=== PATIENT | male | born 1945 | race Caucasian/White ===

== ENCOUNTER → 2019-03-12 | Outpatient (CLI) | payer MEDICARE ==
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
== END ==
LOC: RAD FS 14:45
PROVIDERS: ATTEND Nurse Practitioner Family
DX: S29.9XXA Unspecified injury of thorax, initial encounter (principal); Z98.890 Other specified postprocedural states
CPT/HCPCS: 71100

== ENCOUNTER → 2019-09-18 | Outpatient (CLI) | payer MEDICARE ==
--- NOTE | 2019-09-18 14:45 | Diagnostic Imaging Report ---
INDICATION: Fall five days ago with persistent right chest wall pain. COMPARISON: Exam compared with a previous right rib series from 03/12/2019. FINDINGS: No lung contusion, pneumothorax, or hemothorax. Midline sternal wires are intact. No identifiable rib fracture deformity or abnormal periosteal reaction. No free air beneath the right diaphragm. There has been no appreciable change from the comparison study. IMPRESSION: Stable unremarkable right rib series. Dictated by: Dictated on workstation # [id number]
== END ==
LOC: RAD FS 13:52
PROVIDERS: ATTEND Nurse Practitioner
DX: S20.211A Contusion of right front wall of thorax, initial encounter (principal); W19.XXXA Unspecified fall, initial encounter
CPT/HCPCS: 71100

== ENCOUNTER 2020-01-07 16:29 | Emergency (ER) | payer OTHER, MEDICARE ==
[~2020-01-07] VITALS: Ht 170 cm; Wt 93.0 kg
[2020-01-07 16:41] LABS: BASOPHILS % (AUTO) 1 % (0-10); EOSINOPHILS # (AUTO) 0.2 10^3/uL (0.0-0.3); EOSINOPHILS % (AUTO) 4 % (0-10); HEMATOCRIT 36 % (40-54); HEMOGLOBIN 11.7 G/DL (13.3-17.7); LYMPHOCYTES # (AUTO) 1.9 X 10^3 (1.0-4.0); LYMPHOCYTES % (AUTO) 35 % (12-44); MEAN CORPUSCULAR HEMOGLOBIN 26 PG (25-34); MEAN CORPUSCULAR HGB CONC 33 G/DL (32-36); MEAN CORPUSCULAR VOLUME 80 FL (80-99); MEAN PLATELET VOLUME 10.3 FL (7.4-10.4); MONOCYTES # (AUTO) 0.6 X 10^3 (0.0-1.0); MONOCYTES % (AUTO) 12 % (0-12); NEUTROPHILS # (AUTO) 2.7 X 10^3 (1.8-7.8); NEUTROPHILS % (AUTO) 50 % (42-75); PLATELET COUNT 155 10^3/uL (130-400); RED CELL DISTRIBUTION WIDTH 16.8 % (10.0-14.5); WHITE BLOOD COUNT 5.5 10^3/uL (4.3-11.0)
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
[2020-01-07 16:55] LABS: INR 2.7 (0.8-1.4)
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
[2020-01-07 17:01] LABS: ALANINE AMINOTRANSFERASE 22 U/L (0-55); ALBUMIN 4.1 GM/DL (3.2-4.5); ALKALINE PHOSPHATASE 55 U/L (40-136); BILIRUBIN,TOTAL 0.7 MG/DL (0.1-1.0); BUN/CREATININE RATIO 12; CALCIUM 9.1 MG/DL (8.5-10.1); CARBON DIOXIDE 27 MMOL/L (21-32); CHLORIDE 103 MMOL/L (98-107); CREATININE SERUM 1.38 MG/DL (0.60-1.30); GFR ESTIMATED 51; GLUCOSE 156 MG/DL (70-105); POTASSIUM 4.3 MMOL/L (3.6-5.0); SODIUM 137 MMOL/L (135-145); TOTAL PROTEIN 6.7 GM/DL (6.4-8.2)
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
[2020-01-07 18:25] LABS: BILIRUBIN,URINE NEGATIVE (NEGATIVE); CLARITY,URINE CLEAR; COLOR,URINE YELLOW; GLUCOSE, URINE (UA) NEGATIVE (NEGATIVE); KETONES,URINE NEGATIVE (NEGATIVE); LEUKOCYTE ESTERASE ,URINE NEGATIVE (NEGATIVE); NITRITE,URINE NEGATIVE (NEGATIVE); PH,URINE 6.5 (5-9); PROTEIN,URINE NEGATIVE (NEGATIVE)
[2020-01-07 18:34] LABS: AMORPHOUS SEDIMENT,UR FEW AMOR URATES /LPF; BACTERIA,URINE NEGATIVE /HPF; WBC,URINE 0-2 /HPF
[2020-01-07] MEDS ORDERED: CYCL10TA9 PO (18:51)
[2020-01-07 19:15] VITALS: BP 120/69
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
== END 2020-01-07 19:17 | disposition home or self-care (01) ==
LOC: EDUNIT# 16:29 → ER 16:30
DX: R07.89 Other chest pain (principal); R40.2142 Coma scale, eyes open, spontaneous, at arrival to emergency department; R40.2252 Coma scale, best verbal response, oriented, at arrival to emergency department; R40.2362 Coma scale, best motor response, obeys commands, at arrival to emergency department; Z95.1 Presence of aortocoronary bypass graft; V49.59XA Passenger injured in collision with other motor vehicles in traffic accident, initial encounter
CPT/HCPCS: 36415; 70450; 71046; 72125; 80053; 80320; 81000; 84484; 85025; 85610; 93005

== ENCOUNTER 2020-05-10 18:48 | Emergency (ER) | payer MEDICARE, OTHER ==
[~2020-05-10] VITALS: Ht 162.5 cm; Wt 91.9 kg
[~2020-05-10 18:48] MED LIST: CYCL10TA9 PO
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
--- NOTE | 2020-05-10 19:35 | NUR ---
ATTEMPTED AGAIN TO PALPATE PULSES ON BOTH FEET TO COMPARE AND WAS UNABLE TO PALPATE AT THIS TIME EITHER FEET. EARLIER THIS RN THOUGHT A PULSE WAS FOUND IN THE RIGHT FOOT BUT UNABLE TO FEEL AT THIS TIME AND IT WAS VERY WEAK EARLIER. DOCTOR WILL USE HIS ULTRA SOUND TO CHECK PULSES.
[2020-05-10 19:41] LABS: WHITE BLOOD COUNT 5.5 10^3/uL (4.3-11.0)
[2020-05-10 19:42] LABS: BASOPHILS % (AUTO) 1 % (0-10); EOSINOPHILS # (AUTO) 0.2 10^3/uL (0.0-0.3); EOSINOPHILS % (AUTO) 3 % (0-10); HEMATOCRIT 36 % (40-54); HEMOGLOBIN 11.8 G/DL (13.3-17.7); LYMPHOCYTES # (AUTO) 1.4 X 10^3 (1.0-4.0); LYMPHOCYTES % (AUTO) 25 % (12-44); MEAN CORPUSCULAR HEMOGLOBIN 27 PG (25-34); MEAN CORPUSCULAR HGB CONC 33 G/DL (32-36); MEAN CORPUSCULAR VOLUME 81 FL (80-99); MEAN PLATELET VOLUME 10.6 FL (7.4-10.4); MONOCYTES # (AUTO) 1.1 X 10^3 (0.0-1.0); MONOCYTES % (AUTO) 19 % (0-12); NEUTROPHILS # (AUTO) 2.9 X 10^3 (1.8-7.8); NEUTROPHILS % (AUTO) 53 % (42-75); PLATELET COUNT 143 10^3/uL (130-400)
--- NOTE | 2020-05-10 19:49 | NUR ---
RIGHT LOWER EXT IS MORE SWOLLEN THAN THE LEFT.
[2020-05-10 19:53] LABS: INR 2.3 (0.8-1.4); PROTHROMBIN TIME PATIENT 25.8 SEC (12.2-14.7)
[2020-05-10 19:55] LABS: ERYTHROCYTE SEDIMENTATION RATE 45 MM/HR (0-30)
[2020-05-10 19:57] LABS: BUN/CREATININE RATIO 14; CARBON DIOXIDE 24 MMOL/L (21-32); CHLORIDE 102 MMOL/L (98-107); CREATININE SERUM 1.12 MG/DL (0.60-1.30); GFR ESTIMATED > 60; GLUCOSE 126 MG/DL (70-105); POTASSIUM 4.2 MMOL/L (3.6-5.0); SODIUM 137 MMOL/L (135-145)
[2020-05-10 19:58] LABS: ALANINE AMINOTRANSFERASE 19 U/L (0-55); ALBUMIN 4.1 GM/DL (3.2-4.5); ALKALINE PHOSPHATASE 52 U/L (40-136); BILIRUBIN,TOTAL 0.3 MG/DL (0.1-1.0); CALCIUM 9.2 MG/DL (8.5-10.1); TOTAL PROTEIN 7.1 GM/DL (6.4-8.2)
[2020-05-10 20:16] LABS: EOSINOPHILS % (MANUAL) 1 %; LYMPHOCYTES % (MANUAL) 20 %; MONOCYTES % (MANUAL) 17 %; NEUTROPHILS % (MANUAL) 53 %
[2020-05-10 20:17] LABS: ELLIPT/OVALOCYTES SLIGHT; POIKILOCYTOSIS SLIGHT; REACTIVE LYMPHOCYTES 9 %; SMEAR SCAN COMMENT LARGE PLT'S
[2020-05-10 20:34] LABS: FIBRIN DEGRADATION PRODUCTS 0.35 UG/ML (0.00-0.49)
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
[2020-05-10 21:34] VITALS: BP 157/70
== END 2020-05-10 21:44 | disposition short-term general hospital (02) ==
LOC: EDUNIT# 18:48 → ER FS 18:50
DX: M79.604 Pain in right leg (principal); M79.89 Other specified soft tissue disorders; I25.10 Atherosclerotic heart disease of native coronary artery without angina pectoris; Z86.718 Personal history of other venous thrombosis and embolism; Z86.711 Personal history of pulmonary embolism; Z79.01 Long term (current) use of anticoagulants
CPT/HCPCS: 36415; 80053; 85007; 85027; 85379; 85610; 85652; 85730; 86141

== ENCOUNTER → 2020-07-24 | Outpatient (CLI) | payer MEDICARE | LOC: RAD FS 14:11 | PROVIDERS: ATTEND Family Medicine | DX: R07.9 Chest pain, unspecified (principal) | CPT/HCPCS: 71046 ==

== ENCOUNTER → 2022-09-01 | Outpatient (CLI) | payer MEDICARE ==
[~2022-09-01] MED LIST changes: +CYCL10TA25 PO; -CYCL10TA9 PO
--- NOTE | 2022-09-01 17:22 | Diagnostic Imaging Report ---
INDICATION: Right wrist pain. AP, oblique, and lateral views of the right wrist are obtained. FINDINGS: There is no definite acute fracture or acute bony abnormality. There is marked degenerative changes of the first carpometacarpal joint. There are degenerative changes of the radioulnar joint and radiocarpal joint. There is no lytic or blastic lesion. 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 Dictated by: Dictated on workstation # [id number]
== END ==
LOC: RAD FS 13:54
PROVIDERS: ATTEND Registered Nurse Emergency
DX: M19.031 Primary osteoarthritis, right wrist (principal)
CPT/HCPCS: 73110

== ENCOUNTER → 2022-10-11 | Outpatient (CLI) | payer MEDICARE ==
--- NOTE | 2022-10-11 17:22 | Diagnostic Imaging Report ---
EXAMINATION: Chest 2 view HISTORY: COVID, SOB COMPARISON: 07/24/2020 FINDINGS: Heart size and pulmonary vasculature are normal. The lungs are clear without consolidation, pleural effusion, or pneumothorax. Degenerative changes of the thoracic spine. Osseous structures are otherwise intact. Surgical changes from CABG and median sternotomy. Surgical clips overlie the left lower lung and right upper quadrant. IMPRESSION: 1. No acute radiographic abnormality in the chest. Dictated by: Dictated on workstation # [id number]
== END ==
LOC: RAD FS 16:47
PROVIDERS: ATTEND Registered Nurse Emergency
DX: U07.1 COVID-19 (principal); R06.02 Shortness of breath
CPT/HCPCS: 71046

== ENCOUNTER → 2022-11-26 | Outpatient (CLI) | payer MEDICARE ==
--- NOTE | 2022-11-26 15:07 | Diagnostic Imaging Report ---
INDICATION: Thumb pain. COMPARISON: 09/21/2022. TECHNIQUE: Five radiographs of the right hand and thumb dated November 26, 2022. FINDINGS: No acute fracture or dislocation. No destructive osseous process. Mild scattered degenerative changes, greatest involving the 1st CMC joint where there is joint space narrowing and osteophyte formation. Stable appearance of the distal ulna is noted with associated degenerative changes of the distal radioulnar joint. Carpal alignment is maintained. No suspicious radiopaque foreign body. IMPRESSION: No acute osseous abnormality with scattered degenerative changes, greatest involving the 1st CMC joint and the distal radioulnar joint. Dictated by: Dictated on workstation # [id number]
== END ==
LOC: RAD FS 11:33
PROVIDERS: ATTEND Nurse Practitioner
DX: M79.644 Pain in right finger(s) (principal)
CPT/HCPCS: 73140